=== PATIENT | female | born 1960 | race Caucasian/White ===

== ENCOUNTER 2024-05-13 21:15 | Emergency (ER) | payer BC, MEDICARE ==
[2024-05-13 23:13] VITALS: BP 158/78; PULSE 64
== END 2024-05-13 23:12 | disposition home or self-care (01) ==
LOC: MW.ED 21:15
DX: M25.561 Pain in right knee (principal); Z90.49 Acquired absence of other specified parts of digestive tract; Z88.8 Allergy status to other drugs, medicaments and biological substances; Z79.890 Hormone replacement therapy; Z79.899 Other long term (current) drug therapy; Z75.8 Other problems related to medical facilities and other health care
CPT/HCPCS: 73562-26-RT; 73562-RT; 99283